=== PATIENT | male | born 1935 | race Caucasian/White ===

== ENCOUNTER 2020-08-26 11:12 | Emergency (ER) | payer MEDICARE ==
[~2020-08-26 11:12] MED LIST: ASPIRIN CHEWABL81 MG PO; BACLOFEN 10MG T10 MG PO; CALTRATE 600 +1 EAC1 PO; CARDIZEM CD180 MG PO; CENTRUM ADULTS1 EACH PO; COUMADIN3 MG PO; CRESTOR5 MG PO; DIGITEK125 MCG PO; ISOSORBIDE MONO60 MG PO; LOVAZA1 GM PO; NORCO 5-325 TA1 EACH PO; OSTEO BI-FLEX1 EAC1 PO; PERCOCET 10/321 EACH PO; PREDNISOLO15 MG/5 ML OS; PRESERVISION A1 EACH PO; SYNTHROID100 MCG PO; TAMSULOSIN HCL0.4 MG PO; TIMOPTIC5 ML OS; ZESTRIL5 MG PO
[2020-08-26] MEDS ORDERED: ULTRAM50 MG PO (13:02)
== END 2020-08-26 15:43 | disposition home or self-care (01) ==
LOC: FER 11:12
DX: S32.048A Other fracture of fourth lumbar vertebra, initial encounter for closed fracture (principal); I25.10 Atherosclerotic heart disease of native coronary artery without angina pectoris; I12.9 Hypertensive chronic kidney disease with stage 1 through stage 4 chronic kidney disease, or unspecified chronic kidney disease; N18.9 Chronic kidney disease, unspecified; Z87.39 Personal history of other diseases of the musculoskeletal system and connective tissue; Z98.890 Other specified postprocedural states; Z87.828 Personal history of other (healed) physical injury and trauma; Z79.01 Long term (current) use of anticoagulants; Z79.899 Other long term (current) drug therapy; X50.0XXA Overexertion from strenuous movement or load, initial encounter; Y92.009 Unspecified place in unspecified non-institutional (private) residence as the place of occurrence of the external cause
CPT/HCPCS: 72131